=== PATIENT | female | born 1945 | race Caucasian/White ===

== ENCOUNTER 2017-12-25 15:33 | Outpatient (CLI) | payer MEDICARE, OTHER | END 2017-12-25 15:34 | disposition home or self-care (01) | LOC: BICRAD 15:33 | PROVIDERS: ATTEND Family Medicine | DX: R05 Cough (principal); R91.8 Other nonspecific abnormal finding of lung field; R35.0 Frequency of micturition | CPT/HCPCS: 71046; 81001; 87086 ==

== ENCOUNTER 2018-01-21 12:09 | Outpatient (CLI) | payer MEDICARE, OTHER | END 2018-01-21 12:10 | disposition home or self-care (01) | LOC: BICMRI 12:09 | PROVIDERS: ATTEND Family Medicine | DX: R42 Dizziness and giddiness (principal) | CPT/HCPCS: 70551 ==

== ENCOUNTER 2018-03-25 10:03 | Outpatient (CLI) | payer MEDICARE, OTHER | END 2018-03-25 10:04 | disposition home or self-care (01) | LOC: BICMAMMO 10:03 | PROVIDERS: ATTEND Family Medicine | DX: Z12.31 Encounter for screening mammogram for malignant neoplasm of breast (principal); Z85.89 Personal history of malignant neoplasm of other organs and systems | CPT/HCPCS: 77063; 77067 ==

== ENCOUNTER 2018-07-22 09:01 | Outpatient (CLI) | payer MEDICARE, OTHER ==
--- NOTE | 2018-07-22 11:55 | MRI ---
MRI CERVICAL SPINE WITHOUT CONTRAST: HISTORY: M54.0, radiculitis. COMPARISON: Cervical spine radiographs from 2016. 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 No marrow infiltrative pro cess. No cervical adenopathy. There is an area of normal increased marrow signal of the cord at C4-C6. Levels are as follows: C2-C3: Mild disk desiccation. Mild uncinate process hypertrophy. Mild facet arthropathy on the left . Moderate left and mild right-sided neural foraminal narrowing. C3-C4: Broad-based posterior disk osteophyte complex, greatest in the subforaminal zones. There is moderate to severe facet arthropathy. Uncinate process hypertrophy. Severe right- and moderate left -sided neural foraminal narrowing. There is mild effacement of the ventral CSF space, measuring 8 mm . C4-C5: Moderate uncinate process hypertrophy. There is degenerative anterolisthesis, 1 mm. There i s abutment of the ventral cord. There is severe facet arthropathy bilaterally. There is moderate to severe left- and moderate right-sided neural foraminal narrowing. The spinal canal is narrowed to a pproximately 7 mm. C5-C6: There is a central and bilateral paracentral posterior disk herniation, superimposed on bilat eral subforaminal posterior disk osteophyte complexes. Moderate ligamentum flavum hypertrophy. Ther e is abutment of the cord. The spinal canal measures 6 mm. There is severe bilateral neural foramin al narrowing. C6-C7: Circumferential disk osteophyte complex. Moderate uncinate process hypertrophy. Moderate bi lateral facet arthropathy. Moderate to severe bilateral neural foraminal narrowing. IMPRESSION: Multilevel spondylosis, as described, worst at C4-C7 with cord abutment and normal cord signal, sugge sting myelomalacia. There is also multifocal neural foraminal narrowing. POS: [facility]
== END 2018-07-22 09:02 | disposition home or self-care (01) ==
LOC: BICMRI 09:01
PROVIDERS: ATTEND Orthopaedic Surgery Hand Surgery
DX: M47.22 Other spondylosis with radiculopathy, cervical region (principal); M48.02 Spinal stenosis, cervical region
CPT/HCPCS: 72141

== ENCOUNTER 2019-04-28 10:14 | Outpatient (CLI) | payer MEDICARE, OTHER ==
--- NOTE | 2019-04-28 11:23 | MMO ---
Bilateral MAMMO Bilat Screen [facility]. CLINICAL HISTORY: Patient is 73 years old and is seen for screening. The patient has no family history of breast cancer. The patient has a history of other cancer. VIEWS: The views performed were: bilateral craniocaudal with tomosynthesis and bilateral mediolateral oblique with tomosynthesis. FILMS COMPARED: The present examination has been compared to prior imaging studies performed at [facility] on 03/18/2017 and 03/25/2018, and at [facility] on 02/17/2015 and 03/14/2016. This study has been interpreted with the assistance of computer-aided detection. MAMMOGRAM FINDINGS: The breasts are heterogeneously dense, which could obscure a lesion on mammography. There are no suspicious masses, suspicious calcifications, or new areas of architectural distortion. IMPRESSION: THERE IS NO MAMMOGRAPHIC EVIDENCE OF MALIGNANCY. A ROUTINE FOLLOW-UP MAMMOGRAM IN 1 YEAR IS RECOMMENDED. THE RESULTS OF THIS EXAM WERE SENT TO THE PATIENT. ACR BI-RADS Category 1 - Negative MAMMOGRAPHY NOTE: 1. A negative mammogram report should not delay a biopsy if a dominant of clinically suspicious mass is present. 2. Approximately 10% to 15% of breast cancers are not detected by mammography. 3. Adenosis and dense breasts may obscure an underlying neoplasm. Reported by: FLORENCIO BROWN MD Electonically Signed: [id number]
--- NOTE | 2019-04-28 12:10 | BD ---
DEXA BONE DENSITY STUDY: Date: 04/28/19 HISTORY: Menopause. FINDINGS/IMPRESSION: Lumbar Spine: BMD (g/cm2) L1 0.728 T-Score: -2.4 L2 0.810 T-Score: -2.0 L3 0.754 T-Score: -3.0 L4 0.944 T-Score: -1.1 L1-L4 0.811 T-Score: -2.1 Evidence for osteopenia with evidence for osteoporosis at L3. Left Hip: Femoral Neck: 0.598 T-Score: -2.3 Total Femur: 0.720 T-Score: -1.8 Evidence for osteopenia with increased risk for fracture. Patient is treated for osteoporosis. POS: [facility]
== END 2019-04-28 10:15 | disposition home or self-care (01) ==
LOC: BICMAMMO 10:14
PROVIDERS: ATTEND Family Medicine
DX: Z12.31 Encounter for screening mammogram for malignant neoplasm of breast (principal); Z13.820 Encounter for screening for osteoporosis; Z78.0 Asymptomatic menopausal state; M81.0 Age-related osteoporosis without current pathological fracture; Z85.89 Personal history of malignant neoplasm of other organs and systems
CPT/HCPCS: 77063; 77067; 77080

== ENCOUNTER 2019-05-26 10:06 | Outpatient (CLI) | payer MEDICARE, OTHER ==
--- NOTE | 2019-05-26 12:53 | MRI ---
MRI RIGHT KNEE: 05/26/2019 PROVIDED CLINICAL HISTORY: Right knee pain. COMPARISON: None. FINDINGS: The anterior cruciate ligament, posterior cruciate ligament, medial collateral ligament and lateral c ollateral ligamentous complex demonstrate an intact MR appearance, as does the extensor mechanism. The medial and lateral menisci demonstrate no evidence for tear. There is a focal area of apparent full-thickness articular cartilage loss involving the posterior rafael tral weight-bearing aspect of the medial femoral condyle, measuring about 4 mm in AP dimension. There is conspicuous signal heterogeneity involving the patellar articular cartilage with near full-thickn ess articular cartilage loss involving the majority of the medial facet. There is subcortical signal alteration in the medial tibial plateau anteriorly, presumably reactive t o occult articular cartilage loss. A low grade osteochondral lesion could also be considered. The amount of fluid within the knee joint appears physiologic. Regional marrow and muscular signal appear otherwise normal. IMPRESSION: 1. Patellar and medial femorotibial articular chondrosis, as described. 2. Subcortical signal alteration involving the medial tibial plateau may reflect low grade osteochond ral lesion versus changes reactive to occult overlying articular cartilage loss. POS: [facility]
== END 2019-05-26 10:07 | disposition home or self-care (01) ==
LOC: BICMRI 10:06
PROVIDERS: ATTEND Orthopaedic Surgery
DX: M25.561 Pain in right knee (principal); M22.2X1 Patellofemoral disorders, right knee

== ENCOUNTER 2021-05-02 10:20 | Outpatient (CLI) | payer MEDICARE, OTHER | END 2021-05-02 10:21 | disposition home or self-care (01) | LOC: BICMAMMO 10:20 | PROVIDERS: ATTEND Internal Medicine Endocrinology, Diabetes & Metabolism | DX: Z12.31 Encounter for screening mammogram for malignant neoplasm of breast (principal); M81.0 Age-related osteoporosis without current pathological fracture; M85.89 Other specified disorders of bone density and structure, multiple sites; Z85.89 Personal history of malignant neoplasm of other organs and systems | CPT/HCPCS: 77063; 77067; 77080 ==

== ENCOUNTER 2023-03-27 09:09 | Outpatient (CLI) | payer MEDICARE, OTHER | END 2023-03-27 09:10 | disposition home or self-care (01) | LOC: SCSMRI 09:09 | PROVIDERS: ATTEND Specialist | DX: M51.17 Intervertebral disc disorders with radiculopathy, lumbosacral region (principal); M47.816 Spondylosis without myelopathy or radiculopathy, lumbar region; M48.061 Spinal stenosis, lumbar region without neurogenic claudication | CPT/HCPCS: 72148 ==